=== PATIENT | male | born 1965 | race Two or more races ===

== ENCOUNTER 2020-04-16 11:55 | Inpatient (IN) | payer MEDICAID, OTHER ==
[~2020-04-16] VITALS: Ht 175.3 cm; Wt 116.0 kg
[2020-04-16] MEDS ORDERED: ASPirin 81 mg TAB ONE (12:12)
[2020-04-16] MEDS ORDERED: HEPARIN SODIUM (PORCINE) 5000 UNITS/ML 1ML VIAL ONE (12:12)
[2020-04-16] MEDS ORDERED: MORPHINE SULF INJ 2 MG/ML SYRINGE 1ML ONE (12:16)
[2020-04-16] MEDS ORDERED: ONDANSETRON HCL 4 MG/2 ML VIAL ONE (12:16)
[2020-04-16] MEDS ORDERED: HEPARIN IN NS 1000Units/500mL 1,500 ML ONE (12:29)
[2020-04-16] MEDS ORDERED: LIDOCAINE 2%HCL (LOCAL ANESTH.) INJ 20ML MDV ONE (12:29)
[2020-04-16] MEDS ORDERED: IOHEXOL 350 MG/ML 100ML IJ ONE (12:29)
[2020-04-16] MEDS ORDERED: MORPHINE SULFATE 4 MG/ML SYR/VIAL IV ONE (12:30)
[2020-04-16] MEDS ORDERED: ASPirin 81 mg TAB PO ONE (12:30)
[2020-04-16] MEDS ORDERED: HEPARIN 1,000 UNITS/ml 1ML VIAL IV ONE (12:30)
[2020-04-16] MEDS ORDERED: MIDAZOLAM HCL 1MG/1ML-2 ML VIAL ONE (12:34)
[2020-04-16] MEDS ORDERED: fentaNYL CITRATE 100 MCG/2 ML VL ONE (12:34)
[2020-04-16] MEDS ORDERED: NITROGLYCERIN 50MG/250ML 250 ML IV ONE (12:34)
[2020-04-16] MEDS ORDERED: SODIUM CHL 0.9% 50 ML ONE ×2 (12:34→13:24)
[2020-04-16] MEDS ORDERED: ANGIOMAX 250 MG VIAL IV ONE ×2 (12:34→13:24)
[2020-04-16] MEDS ORDERED: IODIXANOL 320MG/ML 100ML BTL IV ONE ×2 (12:35→13:41)
[2020-04-16 12:47] LABS: Basophils # (auto) 0 10 ^3/uL (0-0.2); Basophils % (auto) 0.3 % (0.0-2.0); Eosinophils # (auto) 0 10 ^3/uL (0-0.8); Hematocrit 51.1 % (41.0-53.0); Hemoglobin 16.9 g/dL (13.5-17.5); Lymphocytes # (auto) 1.9 10 ^3/uL (0.4-5.4); Lymphocytes % (auto) 13.6 % (10.0-50.0); Mean Corpuscular Hemoglobin 31.3 pg (28.0-32.0); Mean Corpuscular Hgb Conc. 33.2 g/dL (32.0-36.0); Mean Corpuscular Volume 94.4 fL (80.0-100.0); Monocytes # (auto) 1.3 10 ^3/uL (0-1.3); Monocytes % (auto) 9.4 % (0.0-12.0); Neutrophils # (auto) 10.5 10 ^3/uL (1.6-8.6); Neutrophils % (auto) 76.7 % (37.0-80.0); Platelet Count (auto) 215 10^3/uL (140-450); Red Blood Cells 5.41 10^6/uL (4.5-5.90); Red Cell Distribution Width 14.1 % (11.8-14.3); White Blood Cell 13.7 10^3/uL (4.4-10.8)
[2020-04-16] MEDS ORDERED: EPTIFIBATIDE INJ (2MG/ML) 10ML VIAL IV ONE (12:55)
[2020-04-16 13:04] LABS: INR 1.02 (0.9-1.15); Partial Thromboplastin Time 26.6 sec (23.0-31.2)
[2020-04-16 13:12] LABS: Albumin 3.8 g/dL (3.4-5.0); Calcium 8.8 mg/dL (8.5-10.1); Magnesium 2.3 mg/dL (1.6-2.6)
[2020-04-16 13:16] LABS: BUN/Creatinine Ratio 14.5; Bilirubin, Total 2.2 mg/dL (0.2-1.0); Total Protein 8.1 g/dL (6.4-8.2)
[2020-04-16] MEDS ORDERED: ADENOSINE 6 MG/2 ML INJ IV ONE (13:16)
[2020-04-16] MEDS ORDERED: niCARdipine 25 MG/10 ML VIAL IV ONE (13:27)
[2020-04-16] MEDS ORDERED: TICAGRELOR 90 MG TAB ONE (13:49)
[2020-04-16] MEDS ORDERED: ONDANSETRON HCL 4 MG/2 ML VIAL IV PRN (14:15)
[2020-04-16] MEDS ORDERED: HYDROcodone-ACET 5/325MG TAB PO PRN (14:15)
[2020-04-16] MEDS ORDERED: DEXTROSE (50%) 50ML SYRG IV PRN (14:15)
[2020-04-16] MEDS ORDERED: ASPirin 81 mg TAB PO SCH (14:15)
[2020-04-16] MEDS ORDERED: HYDROmorphone HCL 2 MG/ML VL IV PRN (14:15)
[2020-04-16 15:35] VITALS: BP 122/71
[2020-04-16] MEDS ORDERED: METF-370 PO (15:51)
[2020-04-16 17:30] VITALS: BP 111/73
[2020-04-16] MEDS: ACCU-CHEK COMFORT CURVE STRIP VI SCH ×2 (18:25→22:19)
[2020-04-16] MEDS: InsuLIN REG 1unit/0.01ml Soln (100units/ml) SC SCH ×2 (18:26→22:20)
[2020-04-16] MEDS: ACETAMINOPHEN 325 MG TAB PO PRN (18:27)
[2020-04-16] MEDS: PIPERACILLIN-TAZOB 3.375GM 100 ML IV SCH ×2 (19:13→23:57)
[2020-04-16 19:18] LABS: Urine Bacteria NONE SEEN /hpf (None Seen); Urine Blood 1+ /uL (Negative); Urine WBC 5 /hpf (0 - 3)
[2020-04-16 19:24] LABS: Urine Specific Gravity > 1.050 (1.001-1.035)
[2020-04-16 20:00] VITALS: BP 108/68
[2020-04-16 22:00] VITALS: BP 108/68
[2020-04-16] MEDS: LISINOPRIL 5 MG TAB PO SCH (22:00)
[2020-04-16] MEDS: ATORVASTATIN 20 MG TAB PO SCH (22:14)
[2020-04-16] MEDS: PANTOPRAZOLE 40 MG/10 ML VIAL INJ IV SCH (22:14)
[2020-04-16] MEDS: SODIUM CHLOR 0.9% PF (SALINE LOCK) 10ML VIAL/SYR IV SCH (22:14)
[2020-04-16] MEDS: METOPROLOL TARTRATE 25 MG TAB PO SCH (22:18)
[2020-04-17] VITALS (8 sets, daily range): BP systolic 93–108; BP diastolic 61–71
[2020-04-17] MEDS: SODIUM CHLOR 0.9% PF (SALINE LOCK) 10ML VIAL/SYR IV SCH ×3 (06:13→22:48)
[2020-04-17] MEDS: ACCU-CHEK COMFORT CURVE STRIP VI SCH ×4 (06:14→22:48)
[2020-04-17] MEDS: PIPERACILLIN-TAZOB 3.375GM 100 ML IV SCH ×2 (06:14→12:06)
[2020-04-17] MEDS: METOPROLOL TARTRATE 25 MG TAB PO SCH ×3 (06:14→23:06)
[2020-04-17] MEDS: InsuLIN REG 1unit/0.01ml Soln (100units/ml) SC SCH ×4 (06:22→23:01)
[2020-04-17 07:40] LABS: Basophils # (auto) 0.1 10 ^3/uL (0-0.2); Basophils % (auto) 0.7 % (0.0-2.0); Eosinophils # (auto) 0 10 ^3/uL (0-0.8); Eosinophils % (auto) 0.1 % (0.0-7.0); Hematocrit 42.5 % (41.0-53.0); Hemoglobin 14.4 g/dL (13.5-17.5); Lymphocytes % (auto) 10.8 % (10.0-50.0); Mean Corpuscular Hemoglobin 31.9 pg (28.0-32.0); Mean Corpuscular Hgb Conc. 33.8 g/dL (32.0-36.0); Mean Corpuscular Volume 94.4 fL (80.0-100.0); Monocytes % (auto) 10.7 % (0.0-12.0); Neutrophils # (auto) 7.6 10 ^3/uL (1.6-8.6); Neutrophils % (auto) 77.7 % (37.0-80.0); Platelet Count (auto) 164 10^3/uL (140-450); Red Cell Distribution Width 14.1 % (11.8-14.3); White Blood Cell 9.7 10^3/uL (4.4-10.8)
[2020-04-17 08:01] LABS: Albumin 2.9 g/dL (3.4-5.0); Potassium 3.6 mmol/L (3.5-5.1)
[2020-04-17 08:20] LABS: BUN/Creatinine Ratio 21.1; Bilirubin, Total 2.2 mg/dL (0.2-1.0); Total Protein 6.7 g/dL (6.4-8.2)
[2020-04-17] MEDS: LISINOPRIL 5 MG TAB PO SCH ×2 (10:00→22:00)
[2020-04-17] MEDS ORDERED: FUROSEMIDE 20 MG/2 ML VIAL IV SCH (10:00)
[2020-04-17] MEDS: POTASSIUM CHLORIDE 8 MEQ TAB PO SCH (10:28)
[2020-04-17] MEDS: PANTOPRAZOLE 40 MG/10 ML VIAL INJ IV SCH (10:28)
[2020-04-17] MEDS: TICAGRELOR 90 MG TAB PO SCH ×2 (10:37→23:51)
[2020-04-17] MEDS ORDERED: INSULIN LANTUS (GLARGINE) 1 /0.01ml (100units/ml) SC ONE (12:45)
[2020-04-17] MEDS ORDERED: DOCUSATE SOD 100 MG CAP PO ONE (13:00)
[2020-04-17] MEDS: DOCUSATE SOD 100 MG CAP PO SCH (22:59)
[2020-04-17] MEDS: ATORVASTATIN 20 MG TAB PO SCH (22:59)
[2020-04-18] VITALS (7 sets, daily range): BP systolic 98–114; BP diastolic 63–73
[2020-04-18] MEDS: METOPROLOL TARTRATE 25 MG TAB PO SCH ×3 (05:54→22:00)
[2020-04-18] MEDS: SODIUM CHLOR 0.9% PF (SALINE LOCK) 10ML VIAL/SYR IV SCH ×3 (05:55→22:00)
[2020-04-18] MEDS: InsuLIN REG 1unit/0.01ml Soln (100units/ml) SC SCH ×4 (06:14→22:31)
[2020-04-18] MEDS: ACCU-CHEK COMFORT CURVE STRIP VI SCH ×4 (06:15→22:01)
[2020-04-18 06:18] LABS: Basophils # (auto) 0.1 10 ^3/uL (0-0.2); Basophils % (auto) 0.9 % (0.0-2.0); Eosinophils # (auto) 0 10 ^3/uL (0-0.8); Eosinophils % (auto) 0.5 % (0.0-7.0); Hematocrit 40.8 % (41.0-53.0); Hemoglobin 13.8 g/dL (13.5-17.5); Lymphocytes # (auto) 1.8 10 ^3/uL (0.4-5.4); Lymphocytes % (auto) 22.2 % (10.0-50.0); Mean Corpuscular Hemoglobin 31.8 pg (28.0-32.0); Mean Corpuscular Hgb Conc. 33.8 g/dL (32.0-36.0); Monocytes # (auto) 0.9 10 ^3/uL (0-1.3); Monocytes % (auto) 10.9 % (0.0-12.0); Neutrophils # (auto) 5.3 10 ^3/uL (1.6-8.6); Neutrophils % (auto) 65.5 % (37.0-80.0); Platelet Count (auto) 170 10^3/uL (140-450); Red Blood Cells 4.34 10^6/uL (4.5-5.90); Red Cell Distribution Width 14.1 % (11.8-14.3); White Blood Cell 8.1 10^3/uL (4.4-10.8)
[2020-04-18 06:40] LABS: Calcium 8.3 mg/dL (8.5-10.1); Potassium 3.2 mmol/L (3.5-5.1)
[2020-04-18 06:43] LABS: BUN/Creatinine Ratio 23.2
[2020-04-18] MEDS: PANTOPRAZOLE 40 MG TAB PO SCH (10:04)
[2020-04-18] MEDS: DOCUSATE SOD 100 MG CAP PO SCH ×2 (10:04→22:26)
[2020-04-18] MEDS: TICAGRELOR 90 MG TAB PO SCH ×2 (10:04→22:25)
[2020-04-18] MEDS: POTASSIUM CHLORIDE 8 MEQ TAB PO SCH (10:04)
[2020-04-18] MEDS: LISINOPRIL 5 MG TAB PO SCH ×2 (10:05→22:00)
[2020-04-18] MEDS: INSULIN LANTUS (GLARGINE) 1 /0.01ml (100units/ml) SC SCH (10:14)
[2020-04-18] MEDS: ATORVASTATIN 20 MG TAB PO SCH (22:26)
[2020-04-19 05:15] VITALS: BP 105/68
[2020-04-19] MEDS: METOPROLOL TARTRATE 25 MG TAB PO SCH (06:00)
[2020-04-19] MEDS: SODIUM CHLOR 0.9% PF (SALINE LOCK) 10ML VIAL/SYR IV SCH ×3 (06:16→22:00)
[2020-04-19] MEDS: ACCU-CHEK COMFORT CURVE STRIP VI SCH ×4 (06:16→21:59)
[2020-04-19] MEDS: InsuLIN REG 1unit/0.01ml Soln (100units/ml) SC SCH ×4 (06:23→21:59)
[2020-04-19 08:00] VITALS: BP 100/60
[2020-04-19 09:00] VITALS: BP 100/60
[2020-04-19] MEDS: LISINOPRIL 5 MG TAB PO SCH ×2 (10:00→21:29)
[2020-04-19] MEDS: PANTOPRAZOLE 40 MG TAB PO SCH (10:06)
[2020-04-19] MEDS: TICAGRELOR 90 MG TAB PO SCH ×2 (10:06→22:00)
[2020-04-19] MEDS: DOCUSATE SOD 100 MG CAP PO SCH ×2 (10:06→22:00)
[2020-04-19] MEDS: POTASSIUM CHLORIDE 8 MEQ TAB PO SCH (10:06)
[2020-04-19] MEDS: INSULIN LANTUS (GLARGINE) 1 /0.01ml (100units/ml) SC SCH (10:07)
[2020-04-19] MEDS ORDERED: SPIRONOLACTONE 25 MG TAB PO ONE (12:45)
[2020-04-19 13:00] VITALS: BP 92/66
[2020-04-19 16:44] VITALS: BP 98/69
[2020-04-19] MEDS: CARVEDILOL 3.125 MG TAB PO SCH (21:28)
[2020-04-19] MEDS: ATORVASTATIN 20 MG TAB PO SCH (21:59)
[2020-04-19 22:00] VITALS: BP 116/64
[2020-04-20 05:00] VITALS: BP 115/77
[2020-04-20 05:25] LABS: BUN/Creatinine Ratio 18.8; Calcium 8.4 mg/dL (8.5-10.1); Potassium 3.7 mmol/L (3.5-5.1)
[2020-04-20] MEDS: SODIUM CHLOR 0.9% PF (SALINE LOCK) 10ML VIAL/SYR IV SCH ×3 (06:19→22:13)
[2020-04-20] MEDS: ACCU-CHEK COMFORT CURVE STRIP VI SCH ×4 (06:37→22:16)
[2020-04-20] MEDS: InsuLIN REG 1unit/0.01ml Soln (100units/ml) SC SCH ×4 (06:37→22:53)
[2020-04-20 08:00] VITALS: BP 107/68
[2020-04-20 08:59] VITALS: BP 107/68
[2020-04-20] MEDS: SPIRONOLACTONE 25 MG TAB PO SCH (09:37)
[2020-04-20] MEDS: DOCUSATE SOD 100 MG CAP PO SCH ×2 (09:37→22:15)
[2020-04-20] MEDS: POTASSIUM CHLORIDE 8 MEQ TAB PO SCH (09:38)
[2020-04-20] MEDS: PANTOPRAZOLE 40 MG TAB PO SCH (09:38)
[2020-04-20] MEDS: LISINOPRIL 5 MG TAB PO SCH ×2 (09:38→22:00)
[2020-04-20] MEDS: CARVEDILOL 3.125 MG TAB PO SCH ×2 (09:39→22:16)
[2020-04-20] MEDS: ACETAMINOPHEN 325 MG TAB PO PRN (09:39)
[2020-04-20] MEDS: INSULIN LANTUS (GLARGINE) 1 /0.01ml (100units/ml) SC SCH (09:47)
[2020-04-20] MEDS: TICAGRELOR 90 MG TAB PO SCH ×2 (09:54→22:15)
[2020-04-20] MEDS ORDERED: LISI2.5T47 PO (10:02)
[2020-04-20] MEDS ORDERED: PANT40T PO (10:02)
[2020-04-20] MEDS ORDERED: CAR3125T PO (10:02)
[2020-04-20] MEDS ORDERED: ASPI81CH43 PO (10:02)
[2020-04-20] MEDS ORDERED: TICA90TA PO (10:02)
[2020-04-20] MEDS ORDERED: ATOR80TA PO (10:02)
[2020-04-20] MEDS ORDERED: SPIR25TA88 PO (10:02)
[2020-04-20] MEDS ORDERED: INSLANTI SC (10:03)
[2020-04-20 13:00] VITALS: BP 104/71
[2020-04-20] MEDS ORDERED: CHOLECALCIFEROL (VITD3) 2,000 UNIT CAP PO ONE (14:15)
[2020-04-20 17:00] VITALS: BP 96/62
[2020-04-20 22:00] VITALS: BP 107/65
[2020-04-20] MEDS: ATORVASTATIN 20 MG TAB PO SCH (22:15)
[2020-04-21 05:00] VITALS: BP 95/58
[2020-04-21] MEDS: SODIUM CHLOR 0.9% PF (SALINE LOCK) 10ML VIAL/SYR IV SCH (05:29)
[2020-04-21 05:54] LABS: BUN/Creatinine Ratio 18.6; Calcium 8.6 mg/dL (8.5-10.1); Potassium 3.6 mmol/L (3.5-5.1)
[2020-04-21] MEDS: ACCU-CHEK COMFORT CURVE STRIP VI SCH (06:34)
[2020-04-21] MEDS: InsuLIN REG 1unit/0.01ml Soln (100units/ml) SC SCH (06:37)
[2020-04-21 08:00] VITALS: BP 95/58
[2020-04-21 09:00] VITALS: BP 102/68
[2020-04-21 09:30] VITALS: BP 95/58
[2020-04-21] MEDS: SPIRONOLACTONE 25 MG TAB PO SCH (10:00)
[2020-04-21] MEDS: LISINOPRIL 5 MG TAB PO SCH (10:00)
[2020-04-21] MEDS: CARVEDILOL 3.125 MG TAB PO SCH (10:00)
[2020-04-21] MEDS ORDERED: CHOLECALCIFEROL (VITD3) 2,000 UNIT CAP PO SCH (10:00)
[2020-04-21] MEDS: DOCUSATE SOD 100 MG CAP PO SCH (10:00)
[2020-04-21] MEDS: TICAGRELOR 90 MG TAB PO SCH (10:33)
[2020-04-21] MEDS: POTASSIUM CHLORIDE 8 MEQ TAB PO SCH (10:33)
[2020-04-21] MEDS: PANTOPRAZOLE 40 MG TAB PO SCH (10:33)
[2020-04-21] MEDS: INSULIN LANTUS (GLARGINE) 1 /0.01ml (100units/ml) SC SCH (10:43)
== END 2020-04-21 11:00 | disposition home or self-care (01) | DRG 174 ==
LOC: ER 11:55 → EDBD 11:55 → TELE-WESTW 11:56
PROVIDERS: ADMIT Specialist; ATTEND Internal Medicine
PROC: B2151ZZ Fluoroscopy of Left Heart using Low Osmolar Contrast (ICD-10-PCS; principal; 2020-04-16)
PROC: 02C03ZZ Extirpation of Matter from Coronary Artery, One Artery, Percutaneous Approach (ICD-10-PCS; 2020-04-16)
PROC: 04HY32Z Insertion of Monitoring Device into Lower Artery, Percutaneous Approach (ICD-10-PCS; 2020-04-16)
PROC: B41F1ZZ Fluoroscopy of Right Lower Extremity Arteries using Low Osmolar Contrast (ICD-10-PCS; 2020-04-16)
PROC: B2111ZZ Fluoroscopy of Multiple Coronary Arteries using Low Osmolar Contrast (ICD-10-PCS; 2020-04-16)
PROC: 027034Z Dilation of Coronary Artery, One Artery with Drug-eluting Intraluminal Device, Percutaneous Approach (ICD-10-PCS; 2020-04-16)
PROC: 3E073PZ Introduction of Platelet Inhibitor into Coronary Artery, Percutaneous Approach (ICD-10-PCS; 2020-04-16)
DX: I21.09 ST elevation (STEMI) myocardial infarction involving other coronary artery of anterior wall (principal); I11.0 Hypertensive heart disease with heart failure; I25.10 Atherosclerotic heart disease of native coronary artery without angina pectoris; I50.31 Acute diastolic (congestive) heart failure; E11.65 Type 2 diabetes mellitus with hyperglycemia; I95.9 Hypotension, unspecified; I25.5 Ischemic cardiomyopathy; I49.9 Cardiac arrhythmia, unspecified; I97.0 Postcardiotomy syndrome; E66.9 Obesity, unspecified; F17.210 Nicotine dependence, cigarettes, uncomplicated; Z98.61 Coronary angioplasty status; Z79.899 Other long term (current) drug therapy; Z79.82 Long term (current) use of aspirin; Z79.4 Long term (current) use of insulin; Z68.37 Body mass index [BMI] 37.0-37.9, adult; Z11.59 Encounter for screening for other viral diseases
CPT/HCPCS: 36415; 71045; 75710; 80048; 80053; 80061; 81001; 82962; 83036; 83735; 83880; 84484; 85025; 85610; 85730; 87040; 87086; 92941; 92975; 93005; 93306; 93458; 96374; 96375; 99152; C1874; C9113; G0378; J0153; J1815; J2250; J2405; J2543; Q9967